=== PATIENT | female | born 1960 | race Native Hawaiian/Other Pacific Islander ===

== ENCOUNTER → 2016-09-03 | Outpatient (CLI) | payer OTHER ==
[~2016-09-03] MED LIST: ATOR20TA15 PO; GABA300C5 PO; HYDR-3580 PO; METO25TA3 PO; NABU1TAB37 PO; TIZA2CAP3 PO; WALKER WHEELS/F1 MIS
--- NOTE | 2016-09-03 09:44 | RADRPT ---
EXAM DATE/TIME: 09/03/2016 09:12 [facility] COMPARISON: No previous studies available for comparison. INDICATIONS: Evaluate hardware after surgery. Surgery 08-15-16. MEDICAL HISTORY: None. SURGICAL HISTORY: Lumbar fusion. ENCOUNTER: Initial ACUITY: 3 weeks PAIN SCORE: 5/10 LOCATION: Lower back. FINDINGS: Lower lumbar spine fusion hardware is noted from L3 through L5. There is no acute compression fractu re or spondylolisthesis. No spondylolysis is noted. CONCLUSION: 1. Lower lumbar spine fusion hardware from L3 through L5. 2. No acute compression fracture, spondylolisthesis or spondylolysis. Anish Fish MD on September 03, 2016 at 9:36 Board Certified Radiologist. This report was verified electronically.
== END ==
LOC: HRAD 08:49
PROVIDERS: ATTEND Orthopaedic Surgery Orthopaedic Surgery of the Spine
DX: M54.5 Low back pain (principal)
CPT/HCPCS: 72110

== ENCOUNTER → 2016-10-02 | Outpatient (CLI) | payer OTHER ==
--- NOTE | 2016-10-02 14:45 | RADRPT ---
EXAM DATE/TIME: 10/02/2016 12:43 [facility] COMPARISON: SPINE LUMBAR COMPLETE W/OBLIQ, September 03, 2016, 9:12. INDICATIONS: Lower back pain MEDICAL HISTORY: None. SURGICAL HISTORY: Fusion, lumbar. ENCOUNTER: Initial ACUITY: 1 month PAIN SCORE: 0/10 LOCATION: Lumbar spine FINDINGS: Transpedicular fixation is present from L3 to L5. Alignment is anatomic. Hardware is in good positi on. CONCLUSION: Anatomic alignment. Keshav Rizvi MD FACR on October 02, 2016 at 13:09 Board Certified Radiologist. This report was verified electronically.
== END ==
LOC: HRAD 12:20
PROVIDERS: ATTEND Orthopaedic Surgery Orthopaedic Surgery of the Spine
DX: M54.5 Low back pain (principal)
CPT/HCPCS: 72110

== ENCOUNTER → 2016-12-03 | Outpatient (CLI) | payer OTHER ==
--- NOTE | 2016-12-03 14:28 | RADRPT ---
EXAM DATE/TIME: 12/03/2016 13:59 [facility] COMPARISON: SPINE LUMBAR LTD (AP & LAT), December 03, 2016, 13:55. SPINE LUMBAR COMPLETE W/OBLIQ, October 02, 2016 , 12:43. SPINE LUMBAR COMPLETE W/OBLIQ, September 03, 2016, 9:12. INDICATIONS : Lumbar spine ankylosis. MEDICAL HISTORY : None. SURGICAL HISTORY : Lumbar fusion. ENCOUNTER: Subsequent ACUITY: 4 - 6 days PAIN SCORE: 0/10 LOCATION: Lumbar. FINDINGS: L3-L5 posterior romeo and transpedicular screw fixation and intervertebral fusion hardware placement at L3-4 and L4-5. No translational instability with flexion or extension. CONCLUSION: No translational instability. Figueroa Sanders MD on December 03, 2016 at 14:26 Board Certified Radiologist. This report was verified electronically.
--- NOTE | 2016-12-03 14:28 | RADRPT ---
EXAM DATE/TIME: 12/03/2016 13:55 [facility] COMPARISON: SPINE LUMBAR LTD (AP & LAT), August 15, 2016, 16:43. INDICATIONS : Lumbar spine ankylosis. MEDICAL HISTORY : None. SURGICAL HISTORY : Lumbar fusion. ENCOUNTER: Subsequent ACUITY: 4 - 6 days PAIN SCORE: 0/10 LOCATION: Lumbar. FINDINGS: There is normal alignment. L3-L5 posterior romeo and transpedicular screw fixation hardware placement n oted and intervertebral fusion hardware placement at L3-4 and L4-5 again seen. No compression deformi ty. Minimal anterior osteophytosis. CONCLUSION: Post fusion changes are noted as above. Figueroa Sanders MD on December 03, 2016 at 14:25 Board Certified Radiologist. This report was verified electronically.
== END ==
LOC: HRAD 13:29
PROVIDERS: ATTEND Orthopaedic Surgery Orthopaedic Surgery of the Spine
DX: M43.26 Fusion of spine, lumbar region (principal)
CPT/HCPCS: 72100; 72120